=== PATIENT | female | born 1980 | race Caucasian/White ===

== ENCOUNTER 2022-05-22 19:07 | Outpatient (CLI) | payer MEDICARE, MEDICAID, SELFPAY ==
[2022-05-23 09:16] LABS: Lipase* 35 U/L (23-300)
== END 2022-05-22 19:08 | disposition home or self-care (01) ==
PROVIDERS: PCP Family Medicine; Visit Provider Student in an Organized Health Care Education/Training Program
DX: R10.9 Unspecified abdominal pain (principal)
CPT/HCPCS: 83690; 87086

== ENCOUNTER 2022-06-02 14:04 | Emergency (ER) | payer MEDICARE, MEDICAID, SELFPAY ==
[2022-06-02 14:16] VITALS: BP 104/65; PULSE 90; RESP 16; TEMP 36.9; O2SAT 95; BMI 26.3
--- NOTE | 2022-06-02 14:56 | CRLHL7_ITS ---
For Patients: As a result of the Cures Act, medical imaging exams and procedure reports are released immediately into your electronic medical record. You may view this report before your referring provider. If you have questions, please contact your health care provider. INDICATION: Trauma. Fall. Right hip pain. TECHNIQUE: AP pelvis and 2 views of the right hip. FINDINGS: No acute pelvic or hip fracture or dislocation identified. No intrinsic skeletal lesion. The hip joints are symmetric and intact. Normal symphysis pubis. Normal sacroiliac joints. IMPRESSION: Negative pelvis and right hip. Dictated by Lei Fernandez MD @ 06/02/2022 3:34:38 PM (Electronically Signed)
--- NOTE | 2022-06-02 15:01 | ED_ITS ---
HPI - Fall General Chief Complaint: Fall/Minor Trauma Stated Complaint: Fall, hip pain Time Seen by Provider: 06/02/22 14:48 History of Present Illness HPI Narrative: This patient comes in with an injury to her right hip. She resides in a nursing home. She was allowed to go out for a walk today around the block. And she slipped and fell and was seen by neighbors laying on her right side. She was able to get up and ambulate. She does complain of pain in her right hip. There is no report of any other injury. Related Data Home Medications Medication Instructions Recorded Confirmed calcium carbonate 500 mg calcium 500 mg PO QDAY 05/22/22 05/22/22 (1,250 mg) tablet (Oyster Shell Calcium 500) carbamide peroxide 6.5 % ear drops 5 drp otic (ear) .week 05/22/22 05/22/22 (Debrox) cetirizine 10 mg tablet 10 mg PO QDAY PRN 05/22/22 05/22/22 docusate sodium 100 mg capsule 200 mg PO QDAY 05/22/22 05/22/22 escitalopram oxalate 20 mg tablet 20 mg PO QDAY 05/22/22 05/22/22 famotidine 20 mg tablet 20 mg PO BID 05/22/22 05/22/22 fluoride (sodium) 1.1 % dental 1 applic dental BID 05/22/22 05/22/22 cream (Denta 5000 Plus) iloperidone 4 mg tablet (Fanapt) 4 mg PO BID 05/22/22 05/22/22 loperamide 2 mg capsule 4 mg PO Q6H PRN 05/22/22 05/22/22 polyethylene glycol 3350 17 17 g PO QDAY 05/22/22 05/22/22 gram/dose oral powder (Gavilax) potassium chloride 10 mEq 10 meq PO QDAY 05/22/22 05/22/22 tablet,extended release(part/cryst) propranolol 10 mg tablet 10 mg PO TID 05/22/22 05/22/22 psyllium husk 0.4 gram capsule 0.4 g PO QDAY 05/22/22 05/22/22 (Daily Fiber) quetiapine 100 mg tablet 100 mg PO TID 05/22/22 05/22/22 topiramate 25 mg tablet 50 mg PO BID 05/22/22 05/22/22 vitamins A and D-white g topical 05/22/22 05/22/22 petrolatum-lanolin topical ointment white petrolatum-mineral oil 57.3 1 applic ophthalmic (eye) BID 05/22/22 05/22/22 %-42.5 % eye ointment (Refresh P.M.) Allergies Allergy/AdvReac Type Severity Reaction Status Date / Time clozapine [From Clozaril] Allergy Unknown Verified 05/22/22 18:33 lithium Allergy Unknown Verified 05/22/22 18:33 Review of Systems Narrative: Unable to obtain due to mental status. [facility] Social History Smoking Status: Never smoker Exam Narrative: Exam Narrative: Constitutional: Well-developed, well-nourished, no acute distress. HEENT: Normocephalic, atraumatic. Neck: Normal range of motion. Nontender. Supple. Heart: Intact distal pulses. Lungs: No chest discomfort. No wheezes, rhonchi, or rales. Abdomen: Nontender. Back: Normal range of motion. Extremities: Diffuse pain in the right hip. She is able to ambulate. No sign of deformity. Skin: Intact. No rash. Warm. No erythema or pallor. Neurologic: No altered sensation. No weakness. Alert and oriented. Psychiatric: No suicidality. No anxiety or depression. No insomnia. Nursing notes and vitals signs are reviewed. Const: Vital Signs, click to edit/add: Vital Signs - 24 hr 06/02/22 14:16 Temperature 98.5 F Pulse Rate [Pulse Oximeter] 90 Respiratory Rate 16 Blood Pressure [Ri ght Upper Arm] 104/65 Pulse Oximetry 95 Oxygen Delivery Me thod Room Air Course Vital Signs Vital signs: Initial Vital Signs Temperature 98.5 F 06/02/22 14:16 Temperature Source Temporal Artery Scan 06/02/22 14:16 Pulse Rate 90 06/02/22 14:16 Pulse Rhythm 06/02/22 14:16 Pulse Strength 3+ Normal 06/02/22 14:16 Respiratory Rate 16 06/02/22 14:16 Blood Pressure 104/65 06/02/22 14:16 Blood Pressure Mean 78 06/02/22 14:16 Blood Pressure Position Sitting 06/02/22 14:16 Pulse Oximetry 95 06/02/22 14:16 Oxygen Delivery Method 06/02/22 14:16 Vital Signs Temperature 98.5 F 06/02/22 14:16 Pulse Rate 90 06/02/22 14:16 Respiratory Rate 16 06/02/22 14:16 Blood Pressure 104/65 06/02/22 14:16 Pulse Oximetry 95 06/02/22 14:16 Oxygen Delivery Method 06/02/22 14:16 Temperature 98.5 F 06/02/22 14:16 Pulse Rate 90 06/02/22 14:16 Respiratory Rate 16 06/02/22 14:16 Blood Pressure 104/65 06/02/22 14:16 Pulse Oximetry 95 06/02/22 14:16 Oxygen Delivery Method 06/02/22 14:16 MDM - Fall MDM Narrative Medical decision making narrative: This patient comes in from a nursing home by protocol for evaluation of an injury that occurred earlier today. She is ambulatory without a limp but does complain of some right hip pain due to this fall. An x-ray of the hip and pelvis returns without any acute findings. She is okay to be discharged home. Imaging Data XR R Hip: Radiologist's impression: Negative pelvis and right hip. Discharge Plan Discharge Clinical Impression: Contusion of hip, right Patient Disposition: Home w/ Parent or Adult Condition: Stable Additional Instructions: Use [id number] meds as needed and directed. Increase activity as tolerated. Follow up with MD or return if worsening. Prescriptions: No Action topiramate 25 mg tablet 50 mg PO BID propranolol 10 mg tablet 10 mg PO TID Label Comments: TAKE ONE (1) TABLET BY MOUTH THREE TIMES A DAY quetiapine 100 mg tablet 100 mg PO TID Label Comments: TAKE ONE (1) TABLET BY MOUTH THREE TIMES A DAY (WORK/HOME CARDS) potassium chloride 10 mEq tablet,ER particles/crystals 10 meq PO QDAY Label Comments: TAKE ONE TABLET BY MOUTH DAILY WITH FOOD polyethylene glycol 3350 [Gavilax] 17 gram/dose powder 17 g PO QDAY Label Comments: Hold dose for loose stool calcium carbonate [Oyster Shell Calcium 500] 500 mg calcium (1,250 mg) tablet 500 mg PO QDAY vits A and D-white pet-lanolin Ointment topical Label Comments: APPLY TWICE DAILY TO BUTTOCKS loperamide 2 mg capsule 4 mg PO Q6H PRN docusate sodium 100 mg capsule 200 mg PO QDAY escitalopram oxalate 20 mg tablet 20 mg PO QDAY Label Comments: TAKE ONE (1) TABLET BY MOUTH DAILY famotidine 20 mg tablet 20 mg PO BID Fanapt 4 mg tablet 4 mg PO BID psyllium husk [Daily Fiber] 0.4 gram capsule 0.4 g PO QDAY cetirizine 10 mg tablet 10 mg PO QDAY PRN Debrox 6.5 % drops 5 drp otic (ear) .week Refresh P.M. 57.3-42.5 % ointment 1 applic ophthalmic (eye) BID fluoride (sodium) [Denta 5000 Plus] 1.1 % cream 1 applic dental BID Follow Up/Referrals: Claudia Caldera MD [Primary Care Provider] - Stand Alone [facility]: [facility] Info Inst[facility]
== END 2022-06-02 16:21 | disposition home or self-care (01) ==
PROVIDERS: Emergency Provider Emergency Medicine Emergency Medical Services; PCP Family Medicine
DX: S70.01XA Contusion of right hip, initial encounter (principal); W01.0XXA Fall on same level from slipping, tripping and stumbling without subsequent striking against object, initial encounter
CPT/HCPCS: 73502; 99283; 99284